=== PATIENT | female | born 1975 | race Caucasian/White ===

== ENCOUNTER 2016-08-08 08:58 | Emergency (ER) | payer SELFPAY ==
[~2016-08-08] VITALS: Wt 80.0 kg
[~2016-08-08 08:58] MED LIST: ACET1TAB40 PO; CEPH-443 PO; CYCL-319 PO; GUAI473L22 PO; HYDR-3498 PO; HYDR-902 PO; HYDR-906 PO; IBUP-1542 PO; IBUP-727 PO; IBUP400T22 PO; IBUP800T25 PO; MELO-109 PO; NAPR-260 PO; ORPH100T PO; ULT50 PO
[2016-08-08] MEDS ORDERED: IBUPROFEN 800 MG TAB PO ONE (10:00)
--- NOTE | 2016-08-08 10:34 | RADRPT ---
PROCEDURE: XR right shoulder. CLINICAL INDICATION: Pain TECHNIQUE: Axillary, Internal and external rotation views of the right shoulder were performed. COMPARISON: None. FINDINGS: There is normal osseous mineralization and alignment. No acute fracture or osseous lesion is identified. There are normal joints without evidence of arthritis or dislocation. The soft tissues are unremarkable. RPTAT: AA IMPRESSION: Unremarkable right shoulder. .Jorje Hernandez MD, MD Date Time Electronically viewed and signed by .Jorje Hernandez MD, on 08/08/2016 10:34 .S/
--- NOTE | 2016-08-08 10:34 | RADRPT ---
PROCEDURE: Right humerus x-ray CLINICAL INDICATION: pain TECHNIQUE: AP and lateral views of the humerus were obtained. COMPARISON: 09/20/2015 FINDINGS: There is normal mineralization. No acute fracture or dislocation is seen. There is no significant soft tissue swelling. RPTAT: AA IMPRESSION: Normal x-ray of the right humerus. .Jorje Hernandez MD, MD Date Time Electronically viewed and signed by .Jorje Hernandez MD, on 08/08/2016 10:34 .S/
[2016-08-08] MEDS ORDERED: ULT50 PO (10:39)
--- NOTE | 2016-08-08 10:41 | ERD ---
ER Documentation Chief Complaint Date/Time DATE: 08/08/16 TIME: 10:39 Chief Complaint RIGHT SHOULDER PAIN FROM A GROUND LEVEL FALL. NO OBVIOUS DEFORMITY HPI This a 41-year-old female who says that she slipped outside in the wet pavement this morning landing on her right shoulder. She is complaining of sharp pain to the midshaft of the right humerus and the lateral aspect of her right shoulder. She did not feel a snap or a pop. He says the pain is sharp and worse with movement better with rest. Did not hit her head or any loss of consciousness. She is denying headache neck pain chest pain back pain pelvic pain or other extremity pain. No abdominal pain. ROS All systems reviewed and are negative except as per history of present illness. Medications Home Meds Active Scripts Tramadol HCl (Tramadol HCl) 50 Mg Tablet, 50 MG PO Q6, #20 TAB Prov:BRITTANI THAYER DO 08/08/16 Guaifenesin-Codeine Phosphate* (Guaifenesin* AC Cough Syrup) 473 Ml Liquid, 5 ML PO Q4H Y for COUGH, #4 OZ Prov:EMMANUEL GRULLON PA-C 07/20/16 Hydrocodone/Acetaminophen ([place] 10-325 Tablet) 1 Each Tablet, 1 TAB PO Q6H Y for PAIN, #15 TAB Prov:EMMANUEL GRULLON PA-C 07/20/16 Naproxen* (Naprosyn*) 500 Mg Tablet, 500 MG PO BID Y for PAIN AND/OR INFLAMMATION, #30 TAB Prov:ALEX GONZALEZ PA-C 05/25/16 Ibuprofen* (Motrin*) 600 Mg Tab, 600 MG PO Q6, #30 TAB Prov:NANCI CAMACHO PA-C 05/12/16 Tramadol HCl (Tramadol HCl) 50 Mg Tablet, 50 MG PO Q4 Y for PAIN, #20 TAB Prov:GUILLERMINA BOONE PA-C 04/04/16 Naproxen* (Naprosyn*) 500 Mg Tablet, 500 MG PO BID Y for PAIN AND/OR INFLAMMATION, #30 TAB Prov:TYSON STERLING PA-C 04/01/16 Hydrocodone/Acetaminophen ([place] 5-325 Tablet) 1 Each Tablet, 1 TAB PO Q6H Y for PAIN, #14 TAB Prov:OTONIEL ASTUDILLO MD 03/29/16 Orphenadrine Citrate (Norflex) 100 Mg Tablet.sa, 100 MG PO BID for 7 Days, TAB.SA Prov:DEMETRIUSRADHA Gonzales 03/10/16 Hydrocodone Bit-Acetaminophen* ([place]*) 5-325 Mg Tab, 1 TAB PO Q6 Y for PAIN, # 10 TAB Prov:DEMETRIUSRADHA Gonzales 03/10/16 Hydrocodone Bit-Acetaminophen* ([place]*) 5-325 Mg Tab, 1 TAB PO Q6 Y for PAIN, # 20 TAB Prov:RADHA ROMO 02/24/16 Ibuprofen* (Motrin*) 600 Mg Tab, 600 MG PO Q6, #20 TAB Prov:ALEX GONZALEZ-C 02/04/16 Tramadol HCl (Tramadol HCl) 50 Mg Tablet, 50 MG PO Q6 Y for PAIN, #8 TAB Prov:ALEX GONZALEZ-C 02/04/16 Cyclobenzaprine Hcl* (Cyclobenzaprine Hcl*) 10 Mg Tablet, 10 MG PO BID, #10 TAB Prov:ALEX GONZALEZ-C 02/04/16 Tramadol HCl (Tramadol HCl) 50 Mg Tablet, 50 MG PO Q6 Y for PAIN, #10 TAB Prov:ALEX GONZALEZ-C 01/28/16 Cephalexin* (Keflex*) 500 Mg Capsule, 500 MG PO QID for 7 Days, CAP Prov:ALEX GONZALEZ-C 01/28/16 Tramadol HCl (Tramadol HCl) 50 Mg Tablet, 50 MG PO Q4 Y for PAIN, #12 TAB Prov:TYSON STERLINGC 12/31/15 Tramadol HCl (Tramadol HCl) 50 Mg Tablet, 50 MG PO Q4 Y for PAIN, #10 TAB Prov:ALEX GONZALEZ-C 12/03/15 Ibuprofen* (Motrin*) 800 Mg Tab, 800 MG PO Q6, #14 TAB Prov:ALEX GONZALEZ-C 12/03/15 Ibuprofen* (Motrin*) 400 Mg Tab, 400 MG PO Q6, #15 TAB Prov:NEY SLADE NP 10/29/15 Acetaminophen-Codeine* (Acetaminophen-Cod #3*) 300-30 Mg Tab, 1 TAB PO Q4H Y for PAIN, #10 TAB Prov:NEY SLADE NP 10/29/15 Tramadol HCl (Tramadol HCl) 50 Mg Tablet, 50 MG PO Q4 Y for PAIN, #20 TAB Prov:GUILLERMINA BOONE PA-C 10/26/15 Meloxicam* (Meloxicam*) 7.5 Mg Tablet, 7.5 MG PO DAILY for PAIN, #12 TAB Prov:TARSHA GARCIA MD 10/06/15 Hydrocodone Bit-Acetaminophen* ([place]*) 5-325 Mg Tab, 1 TAB PO Q6 Y for PAIN, # 10 TAB Prov:ROBIN WALLIS NP 09/20/15 Ibuprofen* (Motrin*) 600 Mg Tab, 600 MG PO Q6, #15 TAB Prov:ROBIN WALLIS NP 09/20/15 Hydrocodone Bit-Acetaminophen* ([place]*) 5-325 Mg Tab, 1 TAB PO Q6 Y for PAIN, # 15 TAB Prov:GUILLERMINA BOONE PA-C 05/27/15 Hydrocodone Bit-Acetaminophen* ([place]*) 5-325 Mg Tab, 1 TAB PO Q4H Y for PAIN, # 14 TAB Prov:TYSON STERLING PA-C 04/15/15 Reported Medications Ibuprofen (Motrin) 600 Mg Tablet, 600 MG PO PRN 03/24/13 Allergies Allergies: Coded Allergies: Penicillins (Verified Allergy, Unknown, 04/04/16) PMhx/Soc History of Surgery: Yes (CHIN surgery, tonsillectomy,appendectomy, cholecystectomy) Anesthesia Reaction: No Hx Neurological Disorder: No Hx Respiratory Disorders: No Hx Cardiac Disorders: No Hx Psychiatric Problems: No Hx Miscellaneous Medical Probl: Yes (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 No meningismus, no lymphadenopathy.] Resp: [Clear to auscultation bilaterally, no wheezing, rhonchi, rales] Cardio: [Regular rate and rhythm, no murmurs, S1 S2 present] Abd: [Soft, non tender x 4, non distended. Normal bowel sounds, no guarding or rebound, no pulsitile abdominal masses or bruits] Skin: [No petechiae or rashes, no ecchymosis , no maculopapular rash] Back: [No midline or flank tenderness] Ext: [No cyanosis, or edema, FROM x 3, tender to palpation at the lateral aspect of the right shoulder and midshaft humerus no deformity, normal inspection, neurovascularly intact x 4] Neur: [Awake and alert, STR 5/5 x 4, sensation intact x 4, no focal findings, cerebellum intact] Psych: [Normal Mood and Affect] Results 24 hrs Current Medications Medications (Trade) Dose Ordered Sig/Nia Route PRN Reason Start Time Stop Time Status Last Admin Dose Admin Ibuprofen (Motrin) 800 mg ONCE ONCE PO 08/08/16 10:00 08/08/16 10:01 DC 08/08/16 09:52 Procedures/MDM X-ray of the right shoulder is normal per radiology X-ray of right humerus is normal per radiology Patient has been seen here many times for multiple musculoskeletal complaints. Patient could be drug-seeking or malingering. We will not prescribe narcotic and will use Ultram Departure Diagnosis: Primary Impression: Contusion, upper arm Encounter type: initial encounter Laterality: right Qualified Code: S40.021A - Contusion of right upper arm, initial encounter Additional Impression: Shoulder pain Laterality: right Chronicity: acute Qualified Code: M25.511 - Acute pain of right shoulder Condition: Stable Patient Instructions: Contusion, Upper Extremity BRITTANI THAYER DO Aug 08, 2016 10:41
== END 2016-08-08 11:01 | disposition home or self-care (01) ==
LOC: FTE 08:58
DX: S40.021A Contusion of right upper arm, initial encounter (principal); W01.0XXA Fall on same level from slipping, tripping and stumbling without subsequent striking against object, initial encounter; Y92.9 Unspecified place or not applicable

== ENCOUNTER 2016-08-31 13:21 | Emergency (ER) | payer OTHER ==
[~2016-08-31] VITALS: Ht 162.6 cm; Wt 89.0 kg
[~2016-08-31 13:21] MED LIST changes: +TRAM50TA2 PO; -ULT50 PO
[2016-08-31 13:30] VITALS: Ht 162.6 cm; Wt 89.0 kg
[2016-08-31] MEDS ORDERED: ONDANSETRON (ODT) 4 MG TAB ODT STA (15:32)
[2016-08-31] MEDS ORDERED: NAPR-260 PO (15:34)
[2016-08-31] MEDS ORDERED: HYDR-906 PO (15:34)
[2016-08-31] MEDS ORDERED: HYDROCODONE/APAP (5/325) TAB PO ONE (16:00)
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
== END 2016-08-31 17:00 | disposition home or self-care (01) ==
LOC: FTE 13:21
DX: M54.5 Low back pain (principal)
CPT/HCPCS: 99283

== ENCOUNTER 2016-09-02 23:00 | Emergency (ER) | payer OTHER ==
[~2016-09-02] VITALS: Ht 157.5 cm; Wt 83.5 kg
[2016-09-02 23:06] VITALS: Ht 157.5 cm; Wt 83.5 kg
[2016-09-03] MEDS ORDERED: ONDA8TAB14 PO (01:30)
[2016-09-03] MEDS ORDERED: TRAM50TA2 PO (01:30)
--- NOTE | 2016-09-03 01:36 | ERD ---
ER Documentation Chief Complaint Date/Time DATE: 09/03/16 TIME: 01:31 Chief Complaint back pain hx- disc problem HPI Patient is a 41-year-old female with past medical history of seizures and chronic back pain secondary to bulging disc who presents to the emergency department with acute exacerbation of lower back pain. Patient states that she had to sleep on the recliner a few days ago while her daughter was undergoing a sleep study at [facility]. Since that time her back pain has been persistent. Patient was seen here on 08/31/16, and given a prescription for Orefield and naproxen. Patient states that the medication does help, however it makes her feel nauseous. Patient states that her current pain level is 6 out of 10. She denies any fever, chills, shortness breath, chest pain, urinary incontinence , stool incontinence, saddle anesthesia. Patient denies any recent falls or trauma. She requesting prescription for tramadol given that this medication "works for me." She denies any nausea while taking tramadol. ROS All systems reviewed and are negative except as per history of present illness. Medications Home Meds Active Scripts Ondansetron (Ondansetron Odt) 8 Mg Tab.rapdis, 8 MG PO Q6H Y for NAUSEA AND/OR VOMITING, #20 TAB Prov:ANGIE MORALEZ PA-C 09/03/16 Tramadol HCl (Tramadol HCl) 50 Mg Tablet, 50 MG PO Q6, #10 TAB Prov:ANGIE MORALEZ PA-C 09/03/16 Naproxen* (Naprosyn*) 500 Mg Tablet, 500 MG PO BID Y for PAIN AND/OR INFLAMMATION, #30 TAB Prov:GUILLERMINA BOONE PA-C 08/31/16 Hydrocodone/Acetaminophen (O[place] 5-325 Tablet) 1 Each Tablet, 1 TAB PO Q6H Y for PAIN, #12 TAB Prov:GUILLERMINA BOONE PA-C 08/31/16 Tramadol HCl (Tramadol HCl) 50 Mg Tablet, 50 MG PO Q6, #20 TAB Prov:BRITTANI THAYER DO 08/08/16 Guaifenesin-Codeine Phosphate* (Guaifenesin* AC Cough Syrup) 473 Ml Liquid, 5 ML PO Q4H Y for COUGH, #4 OZ Prov:EMMANUEL GRULLON PA-C 07/20/16 Hydrocodone/Acetaminophen (O[place] 10-325 Tablet) 1 Each Tablet, 1 TAB PO Q6H Y for PAIN, #15 TAB Prov:EMMANUEL GRULLON PA-C 07/20/16 Naproxen* (Naprosyn*) 500 Mg Tablet, 500 MG PO BID Y for PAIN AND/OR INFLAMMATION, #30 TAB Prov:ALEX GONZALEZ PA-C 05/25/16 Ibuprofen* (Motrin*) 600 Mg Tab, 600 MG PO Q6, #30 TAB Prov:NANCI CAMACHO PA-C 05/12/16 Tramadol HCl (Tramadol HCl) 50 Mg Tablet, 50 MG PO Q4 Y for PAIN, #20 TAB Prov:GUILLERMINA BOONE PA-C 04/04/16 Naproxen* (Naprosyn*) 500 Mg Tablet, 500 MG PO BID Y for PAIN AND/OR INFLAMMATION, #30 TAB Prov:TYSON STERLING PA-C 04/01/16 Hydrocodone/Acetaminophen (Orefield 5-325 Tablet) 1 Each Tablet, 1 TAB PO Q6H Y for PAIN, #14 TAB Prov:OTONIEL ASTUDILLO MD 03/29/16 Orphenadrine Citrate (Norflex) 100 Mg Tablet.sa, 100 MG PO BID for 7 Days, TAB.SA Prov:RADHA ROMO 03/10/16 Hydrocodone Bit-Acetaminophen* (Orefield*) 5-325 Mg Tab, 1 TAB PO Q6 Y for PAIN, # 10 TAB Prov:RADHA ROMO 03/10/16 Hydrocodone Bit-Acetaminophen* (Orefield*) 5-325 Mg Tab, 1 TAB PO Q6 Y for PAIN, # 20 TAB Prov:RADHA ROMO 02/24/16 Ibuprofen* (Motrin*) 600 Mg Tab, 600 MG PO Q6, #20 TAB Prov:ALEX GONZALEZ PA-C 02/04/16 Tramadol HCl (Tramadol HCl) 50 Mg Tablet, 50 MG PO Q6 Y for PAIN, #8 TAB Prov:ALEX GONZALEZ PA-C 02/04/16 Cyclobenzaprine Hcl* (Cyclobenzaprine Hcl*) 10 Mg Tablet, 10 MG PO BID, #10 TAB Prov:ALEX GONZALEZ-C 02/04/16 Tramadol HCl (Tramadol HCl) 50 Mg Tablet, 50 MG PO Q6 Y for PAIN, #10 TAB Prov:ALEX GONZALEZ-C 01/28/16 Cephalexin* (Keflex*) 500 Mg Capsule, 500 MG PO QID for 7 Days, CAP Prov:ALEX GONZALEZ-C 01/28/16 Tramadol HCl (Tramadol HCl) 50 Mg Tablet, 50 MG PO Q4 Y for PAIN, #12 TAB Prov:TYSON STERLINGC 12/31/15 Tramadol HCl (Tramadol HCl) 50 Mg Tablet, 50 MG PO Q4 Y for PAIN, #10 TAB Prov:ALEX GONZALEZC 12/03/15 Ibuprofen* (Motrin*) 800 Mg Tab, 800 MG PO Q6, #14 TAB Prov:ALEX GONZALEZ-C 12/03/15 Ibuprofen* (Motrin*) 400 Mg Tab, 400 MG PO Q6, #15 TAB Prov:NEY SLADE NP 10/29/15 Acetaminophen-Codeine* (Acetaminophen-Cod #3*) 300-30 Mg Tab, 1 TAB PO Q4H Y for PAIN, #10 TAB Prov:NEY SLADE NP 10/29/15 Tramadol HCl (Tramadol HCl) 50 Mg Tablet, 50 MG PO Q4 Y for PAIN, #20 TAB Prov:GUILLERMINA BOONE PA-C 10/26/15 Meloxicam* (Meloxicam*) 7.5 Mg Tablet, 7.5 MG PO DAILY for PAIN, #12 TAB Prov:TARSHA GARCIA MD 10/06/15 Hydrocodone Bit-Acetaminophen* (Orefield*) 5-325 Mg Tab, 1 TAB PO Q6 Y for PAIN, # 10 TAB Prov:ROBIN WALLIS NP 09/20/15 Ibuprofen* (Motrin*) 600 Mg Tab, 600 MG PO Q6, #15 TAB Prov:ROBIN WALLIS NP 09/20/15 Hydrocodone Bit-Acetaminophen* (Orefield*) 5-325 Mg Tab, 1 TAB PO Q6 Y for PAIN, # 15 TAB Prov:GUILLERMINA BOONE PA-C 05/27/15 Hydrocodone Bit-Acetaminophen* (Orefield*) 5-325 Mg Tab, 1 TAB PO Q4H Y for PAIN, # 14 TAB Prov:TYSON STERLING BARB 04/15/15 Reported Medications Ibuprofen (Motrin) 600 Mg Tablet, 600 MG PO PRN 03/24/13 Allergies Allergies: Coded Allergies: Penicillins (Verified Allergy, Unknown, 08/31/16) PMhx/Soc History of Surgery: Yes (CHIN surgery, tonsillectomy,appendectomy, cholecystectomy) Anesthesia Reaction: No Hx Neurological Disorder: No Hx Respiratory Disorders: No Hx Cardiac Disorders: No Hx Psychiatric Problems: No Hx Miscellaneous Medical Probl: Yes (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 Appears in no acute distress. HEAD: Normocephalic, atraumatic. EYES: Pupils are equally reactive bilaterally. EOMs grossly intact. No conjunctival erythema. ENT: Moist mucous membranes. No uvula deviation. No kissing tonsils. NECK: Supple. No lymphadenopathy or thyromegaly. No meningismus. LUNG: Clear to auscultation bilaterally. No rhonchi, wheezing, rales or coarse breath sounds. HEART: Regular rate and rhythm. No murmurs, rubs or gallops. ABDOMEN: No scars, ecchymosis or rashes noted. Soft, nontender, and nondistended. Positive bowel sounds in all four quadrants. No rebound tenderness , no guarding. No CVA tenderness. BACK: Tender to palpation of lumbar spine. No paraspinal muscle tenderness bilaterally. EXTREMITIES: Equal pulses bilaterally. No peripheral clubbing, cyanosis or edema. No unilateral leg swelling. NEUROLOGIC: Alert and oriented. Moving all four extremities without any difficulty. Normal speech. Steady gait. SKIN: Normal color. Warm and dry. No rashes or lesions. Procedures/MDM MEDICAL DECISION MAKING: This is a 41-year-old female who presents with back pain. Patient denies any fever, chills, trauma, falls, saddle anesthesia, bladder incontinence or bowel incontinence. Vital signs were reviewed. Patient was afebrile. Given these findings, the patients presentation is most consistent with acute exacerbation of chronic lower back pain. I have a much lower clinical concern for cauda equine syndrome, spinal fractures, epidural abscess, spinal metastases, osteomyelitis, aortic dissection, ruptured or leaking AA, DJD, sciatica, muscle spasm, pyelonephritis or nephrolithiasis. PRESCRIPTIONS: Tramadol, Zofran DISCHARGE: At this time, patient is stable for discharge and outpatient management. RICE therapy and ROM exercises were advised to avoid stiffness. I have instructed the patient to follow-up with his/her primary care physician in 1-2 days. I have discussed with the patient the possibility of needing to see an credit administration specialist for further workup and imaging if the pain persists. I have instructed the patient to promptly return to the ER for any new or worsening symptoms including increased pain, swelling, warmth, urinary incontinence, stool incontinence, weakness or numbness. The patient and/or family expressed understanding of and agreement with this plan. All questions were answered. Home care instructions were provided. Departure Diagnosis: Primary Impression: Back pain Back pain location: low back pain Chronicity: chronic Back pain laterality : midline Sciatica presence: unspecified whether sciatica present Qualified Code: M54.5 - Chronic midline low back pain, with sciatica presence unspecified Condition: Stable Patient Instructions: Back Pain (Acute Or Chronic) Referrals: COMMUNITY CLINICS YOU HAVE RECEIVED A MEDICAL SCREENING EXAM AND THE RESULTS INDICATE THAT YOU DO NOT HAVE A CONDITION THAT REQUIRES URGENT TREATMENT IN THE EMERGENCY DEPARTMENT. FURTHER EVALUATION AND TREATMENT OF YOUR CONDITION CAN WAIT UNTIL YOU ARE SEEN IN YOUR DOCTORS OFFICE WITHIN THE NEXT 1-2 DAYS. IT IS YOUR RESPONSIBILITY TO MAKE AN APPOINTMENT FOR FOLOW-UP CARE. IF YOU HAVE A PRIMARY DOCTOR --you should call your primary doctor and schedule an appointment IF YOU DO NOT HAVE A PRIMARY DOCTOR YOU CAN CALL OUR PHYSICIAN REFERRAL HOTLINE AT IF YOU CAN NOT AFFORD TO SEE A PHYSICIAN YOU CAN CHOSE FROM THE FOLLOWING [facility] [address] [facility] [address] [facility]. [facility] [address] [facility] [address] [facility]. [facility] [address] [facility] [facility]. [address] [facility]. [facility] YOU HAVE RECEIVED A MEDICAL SCREENING EXAM AND THE RESULTS INDICATE THAT YOU DO NOT HAVE A CONDITION THAT REQUIRES URGENT TREATMENT IN THE EMERGENCY DEPARTMENT. FURTHER EVALUATION AND TREATMENT OF YOUR CONDITION CAN WAIT UNTIL YOU ARE SEEN IN YOUR DOCTORS OFFICE WITHIN THE NEXT 1-2 DAYS. IT IS YOUR RESPONSIBILITY TO MAKE AN APPOINTMENT FOR FOLOW-UP CARE. IF YOU HAVE A PRIMARY DOCTOR --you should call your primary doctor and schedule and appointment IF YOU DO NOT HAVE A PRIMARY DOCTOR YOU CAN CALL OUR PHYSICIAN REFERRAL HOTLINE AT . IF YOU CAN NOT AFFORD TO SEE A PHYSICIAN YOU CAN CHOSE FROM THE FOLLOWING [facility] INSTITUTIONS: [facility] [address] [place] [address] [facility] [address] [place] [address] [facility] [address] [place] [address] Additional Instructions: Call your primary care doctor TOMORROW for an appointment during the next 1-2 days.See the doctor sooner or return here if your condition worsens before your appointment time. ANGIE MORALEZ PA-C Sep 03, 2016 01:36
== END 2016-09-03 01:51 | disposition home or self-care (01) ==
LOC: FTE 23:00
DX: M54.5 Low back pain (principal)
CPT/HCPCS: 99284

== ENCOUNTER 2016-10-01 08:38 | Emergency (ER) | payer OTHER ==
[~2016-10-01] VITALS: Ht 154.9 cm; Wt 84.0 kg
[~2016-10-01 08:38] MED LIST changes: +ONDA8TAB14 PO
[2016-10-01 09:01] VITALS: Ht 154.9 cm; Wt 84.0 kg
--- NOTE | 2016-10-01 11:05 | RADRPT ---
PROCEDURE: Pelvic ultrasound. CLINICAL INDICATION: Pelvic pain TECHNIQUE: Gay scale, color doppler, spectral doppler ultrasound of the pelvis was performed with transabdominal and transvaginal transducers. COMPARISON: Pelvic ultrasound 10/29/2015 FINDINGS: Uterus: Position: Anteverted. Diffuse myometrial heterogeneity is again observed with multiple intramural appearing fibroids measu ring up to 2.8 cm. Small submucosal fibroids cannot be completely excluded. Normal appearance of the endometrium. A small Nabothian cyst is present. Ovaries: Normal sized ovaries with preserved blood flow. No adnexal masses. A few sub centimeter follicles noted within the left ovary. Free fluid: None. Measurements: Endometrium: 0.38 cm Uterus: 7.9 x 4.8 x 5.8 cm Right ovary: 2.0 x 1.2 x 1.6 cm Left ovary: 2.4 x 1.5 x 1.7 cm IMPRESSION: Uterine heterogeneity suggestive of multiple small predominantly intramural fibroids with small subm ucosal fibroids not being completely excluded. Otherwise normal appearance the endometrium and both ovaries. RPTAT: AADD .David Hannon MD, MD Date Time Electronically viewed and signed by .David Hannon MD, on 10/01/2016 11:05 .B/
[2016-10-01 11:08] LABS: URINE BLOOD (Dip) POC Negative (NEGATIVE)
[2016-10-01] MEDS ORDERED: IBUPROFEN 200 MG TAB PO ONE (11:30)
[2016-10-01] MEDS ORDERED: IBUP400T22 PO (12:00)
[2016-10-01] MEDS ORDERED: TRAM50TA2 PO (12:20)
[2016-10-01] MEDS ORDERED: ONDA4TAB8 PO (12:20)
[2016-10-01 12:26] VITALS: BP 118/67; PULSE 77; RESP 18
--- NOTE | 2016-10-01 16:43 | ERD ---
ER Documentation Chief Complaint Date/Time DATE: 10/01/16 TIME: 16:38 Chief Complaint right side pelvic pain x3 days, hx;cyst and fibroids lmp 09/28/16 HPI Patient is a 41-year-old female who presents to the ED with right-sided pelvic pain for 3 days. She states that she has a history of ovarian cysts and fibroids. She states that she is currently not bleeding. She denies abnormal vaginal discharge. She states that her last normal menstrual period was . She denies fever or chills. She denies nausea, vomiting, diarrhea, abdominal pain, constipation. Last bowel movement was yesterday. Patient states that she has a commercial underwriter that she follows but however she changed her health insurance and she has not been able to see her commercial underwriter in the last month but she does have an appointment on 10/05/16. She states that she is planning on getting hysterectomy once her insurance is finalized. Denies history of STDs. States that she is currently sexually active with one partner. Denies dysuria, urgency, frequency or back pain. This patient has had multiple visits here at [facility] for multiple complaints and has received pain medication. ROS All systems reviewed and are negative except as per history of present illness. Medications Home Meds Active Scripts Ondansetron Hcl* (Zofran*) 4 Mg Tablet, 4 MG PO Q6H for NAUSEA AND/OR VOMITING, #30 TAB Prov:GLADIS KAT PA-C 10/01/16 Tramadol HCl (Tramadol HCl) 50 Mg Tablet, 50 MG PO Q4 Y for PAIN, #7 TAB Prov:GLADIS KAT PA-C 10/01/16 Ibuprofen* (Motrin*) 400 Mg Tab, 400 MG PO Q6, #30 TAB Prov:GLADIS KAT PA-C 10/01/16 Ondansetron (Ondansetron Odt) 8 Mg Tab.rapdis, 8 MG PO Q6H Y for NAUSEA AND/OR VOMITING, #20 TAB Prov:ANGIE MORALEZ PA-C 09/03/16 Tramadol HCl (Tramadol HCl) 50 Mg Tablet, 50 MG PO Q6, #10 TAB Prov:ANGIE MORALEZ PA-C 09/03/16 Naproxen* (Naprosyn*) 500 Mg Tablet, 500 MG PO BID Y for PAIN AND/OR INFLAMMATION, #30 TAB Prov:GUILLERMINA BOONE PA-C 08/31/16 Hydrocodone/Acetaminophen ([place] 5-325 Tablet) 1 Each Tablet, 1 TAB PO Q6H Y for PAIN, #12 TAB Prov:GUILLERMINA BOONE PA-C 08/31/16 Tramadol HCl (Tramadol HCl) 50 Mg Tablet, 50 MG PO Q6, #20 TAB Prov:BRITTANI THAYER DO 08/08/16 Guaifenesin-Codeine Phosphate* (Guaifenesin* AC Cough Syrup) 473 Ml Liquid, 5 ML PO Q4H Y for COUGH, #4 OZ Prov:EMMANUEL GRULLON PA-C 07/20/16 Hydrocodone/Acetaminophen ([place] 10-325 Tablet) 1 Each Tablet, 1 TAB PO Q6H Y for PAIN, #15 TAB Prov:EMMANUEL GRULLON PA-C 07/20/16 Naproxen* (Naprosyn*) 500 Mg Tablet, 500 MG PO BID Y for PAIN AND/OR INFLAMMATION, #30 TAB Prov:ALEX GONZALEZ PA-C 05/25/16 Ibuprofen* (Motrin*) 600 Mg Tab, 600 MG PO Q6, #30 TAB Prov:NANCI CAMACHO PA-C 05/12/16 Tramadol HCl (Tramadol HCl) 50 Mg Tablet, 50 MG PO Q4 Y for PAIN, #20 TAB Prov:GUILLERMINA BOONE PA-C 04/04/16 Naproxen* (Naprosyn*) 500 Mg Tablet, 500 MG PO BID Y for PAIN AND/OR INFLAMMATION, #30 TAB Prov:TYSON STERLING PA-C 04/01/16 Hydrocodone/Acetaminophen ([place] 5-325 Tablet) 1 Each Tablet, 1 TAB PO Q6H Y for PAIN, #14 TAB Prov:OTONIEL ASTUDILLO MD 03/29/16 Orphenadrine Citrate (Norflex) 100 Mg Tablet.sa, 100 MG PO BID for 7 Days, TAB.SA Prov:RADHA ROMO 03/10/16 Hydrocodone Bit-Acetaminophen* ([place]*) 5-325 Mg Tab, 1 TAB PO Q6 Y for PAIN, # 10 TAB Prov:RADHA ROMO 03/10/16 Hydrocodone Bit-Acetaminophen* ([place]*) 5-325 Mg Tab, 1 TAB PO Q6 Y for PAIN, # 20 TAB Prov:RADHA ROMO 02/24/16 Ibuprofen* (Motrin*) 600 Mg Tab, 600 MG PO Q6, #20 TAB Prov:ALEX GONZALEZ-C 02/04/16 Tramadol HCl (Tramadol HCl) 50 Mg Tablet, 50 MG PO Q6 Y for PAIN, #8 TAB Prov:ALEX GONZALEZ-C 02/04/16 Cyclobenzaprine Hcl* (Cyclobenzaprine Hcl*) 10 Mg Tablet, 10 MG PO BID, #10 TAB Prov:ALEX GONZALEZ-C 02/04/16 Tramadol HCl (Tramadol HCl) 50 Mg Tablet, 50 MG PO Q6 Y for PAIN, #10 TAB Prov:ALEX GONZALEZ-C 01/28/16 Cephalexin* (Keflex*) 500 Mg Capsule, 500 MG PO QID for 7 Days, CAP Prov:ALEX GONZALEZ-C 01/28/16 Tramadol HCl (Tramadol HCl) 50 Mg Tablet, 50 MG PO Q4 Y for PAIN, #12 TAB Prov:TYSON STERLING-C 12/31/15 Tramadol HCl (Tramadol HCl) 50 Mg Tablet, 50 MG PO Q4 Y for PAIN, #10 TAB Prov:ALEX GONZALEZ-C 12/03/15 Ibuprofen* (Motrin*) 800 Mg Tab, 800 MG PO Q6, #14 TAB Prov:ALEX GONZALEZ-C 12/03/15 Ibuprofen* (Motrin*) 400 Mg Tab, 400 MG PO Q6, #15 TAB Prov:NEY SLADE NP 10/29/15 Acetaminophen-Codeine* (Acetaminophen-Cod #3*) 300-30 Mg Tab, 1 TAB PO Q4H Y for PAIN, #10 TAB Prov:NEY SLADE NP 10/29/15 Tramadol HCl (Tramadol HCl) 50 Mg Tablet, 50 MG PO Q4 Y for PAIN, #20 TAB Prov:GUILLERMINA BOONE-C 10/26/15 Meloxicam* (Meloxicam*) 7.5 Mg Tablet, 7.5 MG PO DAILY for PAIN, #12 TAB Prov:TARSHA GARCIA MD 10/06/15 Hydrocodone Bit-Acetaminophen* ([place]*) 5-325 Mg Tab, 1 TAB PO Q6 Y for PAIN, # 10 TAB Prov:ROBIN WALLIS [employer]EDER [employer] SERVICE TECHNICIAN 09/20/15 Ibuprofen* (Motrin*) 600 Mg Tab, 600 MG PO Q6, #15 TAB Prov:ROBIN WALLIS BREEDER HEN SERVICE TECHNICIAN 09/20/15 Hydrocodone Bit-Acetaminophen* ([place]*) 5-325 Mg Tab, 1 TAB PO Q6 Y for PAIN, # 15 TAB Prov:GUILLERMINA BOONE PA-C 05/27/15 Hydrocodone Bit-Acetaminophen* ([place]*) 5-325 Mg Tab, 1 TAB PO Q4H Y for PAIN, # 14 TAB Prov:TYSON STERLINGC 04/15/15 Reported Medications Ibuprofen (Motrin) 600 Mg Tablet, 600 MG PO PRN 03/24/13 Allergies Allergies: Coded Allergies: Penicillins (Verified Allergy, Unknown, 08/31/16) PMhx/Soc History of Surgery: Yes (tonsil, appy, gallbladder) Anesthesia Reaction: Yes (nausea) Hx Neurological Disorder: No Hx Respiratory Disorders: No Hx Cardiac Disorders: No Hx Psychiatric Problems: No Hx Miscellaneous Medical Probl: No Hx Alcohol Use: No Hx Substance Use: No Hx Tobacco Use: No Smoking Status: Never smoker FmHx Family History: No coronary disease, No diabetes, No other Physical Exam Vitals Vital Signs Date Time Temp Pulse Resp B/P Pulse Ox O2 Delivery O2 Flow Rate FiO2 10/01/16 12:26 77 18 118/67 99 Room Air 10/01/16 09:01 98.3 86 18 143/93 100 Physical Exam GENERAL: Well-developed, well-nourished female. Appears in no acute distress. LUNG: Clear to auscultation bilaterally. No rhonchi, wheezing, rales or coarse breath sounds. HEART: Regular rate and rhythm. No murmurs, rubs or gallops. ABDOMEN: No scars, ecchymosis or rashes noted. Soft, nontender, and nondistended. Positive bowel sounds in all four quadrants. No rebound tenderness , no guarding. (-) McBurneys point tenderness. No CVA tenderness. Slight tenderness to right pelvic area. BACK: No midline tenderness. Extremities: Equal pulses bilaterally. No peripheral clubbing, cyanosis or edema. No unilateral leg swelling. NEUROLOGIC: Alert and oriented. Moving all four extremities. 5/5 strength in all extremities. Normal speech. Steady gait. SKIN: Normal color. Warm and dry. No rashes or lesions. Capillary refill < 2 seconds Results 24 hrs Laboratory Tests Test 10/01/16 11:11 Bedside Urine Blood Negative Bedside Urine Glucose (UA) Negative Bedside Urine Ketones (LAB) Negative Bedside Urine Leukocyte Esterase (L Negative Bedside Urine Nitrite (LAB) Negative Bedside Urine Protein (LAB) Negative Bedside Urine pH (LAB) 7.5 Current Medications Medications (Trade) Dose Ordered Sig/Nia Route PRN Reason Start Time Stop Time Status Last Admin Dose Admin Ibuprofen (Motrin) 400 mg ONCE ONCE PO 10/01/16 11:30 10/01/16 11:31 DC 10/01/16 12:07 Procedures/MDM ER COURSE: I kept the patient and/or family informed of laboratory and diagnostic imaging results throughout the emergency room course. IMAGING STUDIES: [place] [id number] Radiology Main Line: [phone] DIAGNOSTIC IMAGING REPORT Patient: ANYA JIANG : 1975 Age: 41 Sex: F MR #: [id number] DOS: 10/01/16 0000 Ordering MD: GLADIS KAT PA-C Location: [facility] Room/Bed: PROCEDURE: Pelvic ultrasound. CLINICAL INDICATION: Pelvic pain TECHNIQUE: Gay scale, color doppler, spectral doppler ultrasound of the pelvis was performed with transabdominal and transvaginal transducers. COMPARISON: Pelvic ultrasound 10/29/2015 FINDINGS: Uterus: Position: Anteverted. Diffuse myometrial heterogeneity is again observed with multiple intramural appearing fibroids measuring up to 2.8 cm. Small submucosal fibroids cannot be completely excluded. Normal appearance of the endometrium. A small Nabothian cyst is present. Ovaries: Normal sized ovaries with preserved blood flow. No adnexal masses. A few sub centimeter follicles noted within the left ovary. Free fluid: None. Measurements: Endometrium: 0.38 cm Uterus: 7.9 x 4.8 x 5.8 cm Right ovary: 2.0 x 1.2 x 1.6 cm Left ovary: 2.4 x 1.5 x 1.7 cm IMPRESSION: Uterine heterogeneity suggestive of multiple small predominantly intramural fibroids with small submucosal fibroids not being completely excluded. Otherwise normal appearance the endometrium and both ovaries. RPTAT: AADD .David Hannon MD, MD Date Time Electronically viewed and signed by .David Hannon MD, on 10/01/2016 11:05 .B/ CC: GLADIS KAT PA-C MEDICAL DECISION MAKING: This is a 41-year-old female who presents with right-sided pelvic pain 3 days. Vital signs were reviewed. Patient is afebrile. Patient is not hypoxic. Patient is not toxic or ill-appearing. Ultrasound is read by radiologist shows Uterine heterogeneity suggestive of multiple small predominantly intramural fibroids with small submucosal fibroids not being completely excluded. Otherwise normal appearance the endometrium and both ovaries. Low suspicion for ovarian torsion, PID, tuboovarian abscess, ectopic , bowel obstruction, pyelonephritis, UTI, appendicitis, cervicitis, septic , molar , HELLP syndrome, preeclampsia, eclampsia, placenta previa, placenta abruptia. Patient does not have signs of UTI, no nitrites, leukocyte esterase or hematuria. is negative. I do think that patient has slight drug-seeking behavior. DISCHARGE: At this time, patient is stable for discharge and outpatient management with no new complaints during the ER course. Patient was sent home with prescription for tramadol for only 7 tablets and zofran for nausea. I have given him a copy of her ultrasound reports and review the results with the patient. Patient will be taking her ultrasound results with her commercial underwriter at her appointment next week. Patient will be discharged home with instructions to recheck for new or worsening symptoms such as fever, nausea, weakness, LOC and to follow up with primary care in the next 1-2 days. Patient was advised to return to the ER for any new or worsening symptoms. Plan was discussed and patient and/or family understands and agrees. Home instructions were given. Departure Diagnosis: Primary Impression: Fibroids Uterine leiomyoma location: unspecified location Qualified Code: D25.9 - Uterine leiomyoma, unspecified location Condition: Stable Patient Instructions: What Are Fibroids? Additional Instructions: Call your primary care doctor TOMORROW for an appointment during the next 1-2 days.See the doctor sooner or return here if your condition worsens before your appointment time. GLADIS KAT PA-C Oct 01, 2016 16:43
== END 2016-10-01 12:27 | disposition home or self-care (01) ==
LOC: FTE 08:38
DX: D25.9 Leiomyoma of uterus, unspecified (principal)
CPT/HCPCS: 76830; 76856; 81003

== ENCOUNTER 2016-11-04 08:45 | Emergency (ER) | payer SELFPAY ==
[~2016-11-04] VITALS: Ht 154.9 cm; Wt 80.0 kg
[~2016-11-04 08:45] MED LIST changes: +ONDA4TAB8 PO
[2016-11-04 08:46] VITALS: Ht 154.9 cm; Wt 80.0 kg
[2016-11-04] MEDS ORDERED: FLUT9.9S NASAL (09:33)
[2016-11-04] MEDS ORDERED: CETI10CA PO (09:34)
[2016-11-04] MEDS ORDERED: D-ME473S18 PO (09:34)
[2016-11-04] MEDS ORDERED: AZIT250T94 PO (09:34)
[2016-11-04] MEDS ORDERED: NAPR-260 PO (09:35)
--- NOTE | 2016-11-04 09:42 | ERD ---
ER Documentation Chief Complaint Date/Time DATE: 11/04/16 TIME: 09:39 Chief Complaint pt bib self with c/o cough x 5 days HPI This a 41-year-old female who presents to the emergency department today complaining of cough for the past 5 days. States cough is worse at night. States she has tried Robitussin [id number]. States she also has a headache. Denies any fevers or chills. Denies any sore throat. ROS All systems reviewed and are negative except as per history of present illness. Medications Home Meds Active Scripts Naproxen* (Naprosyn*) 500 Mg Tablet, 500 MG PO BID Y for PAIN AND/OR INFLAMMATION, #30 TAB Prov:ALEX GONZALEZ PA-C 11/04/16 Azithromycin* (Zithromax*) 250 Mg Tablet, 250 MG PO .ZPACK DIRECTED, #6 TAB TAKE 500 MG (2 TABS) THE FIRST DAY THEN 250 MG (1 TAB) DAYS 2-5 Prov:ALEX GONZALEZ PA-C 11/04/16 Dextromethorphan Hb-Promethazine Hcl (Promethazine DM Syrup) 473 Ml Syrup, 5 ML PO Q6H Y for COUGH, #4 OZ Prov:ALEX GONZALEZ PA-C 11/04/16 Cetirizine Hcl* (Zyrtec*) 10 Mg Capsule, 10 MG PO DAILY, #14 TAB.CHEW Prov:ALEX GONZALEZ PA-C 11/04/16 Fluticasone Propionate (Flonase Allergy Relief) 9.9 Ml [place].susp, 2 SPRAY NASAL DAILY, #1 BOTTLE TO EACH NOSTRIL Prov:ALEX GONZALEZ PA-C 11/04/16 Ondansetron Hcl* (Zofran*) 4 Mg Tablet, 4 MG PO Q6H for NAUSEA AND/OR VOMITING, #30 TAB Prov:GLADIS KAT PA-C 10/01/16 Tramadol HCl (Tramadol HCl) 50 Mg Tablet, 50 MG PO Q4 Y for PAIN, #7 TAB Prov:GLADIS KAT PA-C 10/01/16 Ibuprofen* (Motrin*) 400 Mg Tab, 400 MG PO Q6, #30 TAB Prov:GLADIS KAT PA-C 10/01/16 Ondansetron (Ondansetron Odt) 8 Mg Tab.rapdis, 8 MG PO Q6H Y for NAUSEA AND/OR VOMITING, #20 TAB Prov:ANGIE MORALEZ PA-C 09/03/16 Tramadol HCl (Tramadol HCl) 50 Mg Tablet, 50 MG PO Q6, #10 TAB Prov:ANGIE MORALEZ PA-C 09/03/16 Naproxen* (Naprosyn*) 500 Mg Tablet, 500 MG PO BID Y for PAIN AND/OR INFLAMMATION, #30 TAB Prov:GUILLERMINA BOONE PA-C 08/31/16 Hydrocodone/Acetaminophen ([place] 5-325 Tablet) 1 Each Tablet, 1 TAB PO Q6H Y for PAIN, #12 TAB Prov:GUILLERMINA BOONE PA-C 08/31/16 Tramadol HCl (Tramadol HCl) 50 Mg Tablet, 50 MG PO Q6, #20 TAB Prov:BRITTANI THAYER DO 08/08/16 Guaifenesin-Codeine Phosphate* (Guaifenesin* AC Cough Syrup) 473 Ml Liquid, 5 ML PO Q4H Y for COUGH, #4 OZ Prov:EMMANUEL GRULLON PA-C 07/20/16 Hydrocodone/Acetaminophen ([place] 10-325 Tablet) 1 Each Tablet, 1 TAB PO Q6H Y for PAIN, #15 TAB Prov:EMMANUEL GRULLON PA-C 07/20/16 Naproxen* (Naprosyn*) 500 Mg Tablet, 500 MG PO BID Y for PAIN AND/OR INFLAMMATION, #30 TAB Prov:ALEX GONZALEZ PA-C 05/25/16 Ibuprofen* (Motrin*) 600 Mg Tab, 600 MG PO Q6, #30 TAB Prov:NANCI CAMACHO PA-C 05/12/16 Tramadol HCl (Tramadol HCl) 50 Mg Tablet, 50 MG PO Q4 Y for PAIN, #20 TAB Prov:GUILLERMINA BOONE PA-C 04/04/16 Naproxen* (Naprosyn*) 500 Mg Tablet, 500 MG PO BID Y for PAIN AND/OR INFLAMMATION, #30 TAB Prov:TYSON STERLING PA-C 04/01/16 Hydrocodone/Acetaminophen ([place] 5-325 Tablet) 1 Each Tablet, 1 TAB PO Q6H Y for PAIN, #14 TAB Prov:OTONIEL ASTUDILLO MD 03/29/16 Orphenadrine Citrate (Norflex) 100 Mg Tablet.sa, 100 MG PO BID for 7 Days, TAB.SA Prov:RADHA ROMO 03/10/16 Hydrocodone Bit-Acetaminophen* ([place]*) 5-325 Mg Tab, 1 TAB PO Q6 Y for PAIN, # 10 TAB Prov:RADHA ROMO 03/10/16 Hydrocodone Bit-Acetaminophen* ([place]*) 5-325 Mg Tab, 1 TAB PO Q6 Y for PAIN, # 20 TAB Prov:RADHA ROMO 02/24/16 Ibuprofen* (Motrin*) 600 Mg Tab, 600 MG PO Q6, #20 TAB Prov:ALEX GONZALEZ-C 02/04/16 Tramadol HCl (Tramadol HCl) 50 Mg Tablet, 50 MG PO Q6 Y for PAIN, #8 TAB Prov:ALEX GONZALEZ-C 02/04/16 Cyclobenzaprine Hcl* (Cyclobenzaprine Hcl*) 10 Mg Tablet, 10 MG PO BID, #10 TAB Prov:ALEX GONZALEZ-C 02/04/16 Tramadol HCl (Tramadol HCl) 50 Mg Tablet, 50 MG PO Q6 Y for PAIN, #10 TAB Prov:ALEX GONZALEZ-C 01/28/16 Cephalexin* (Keflex*) 500 Mg Capsule, 500 MG PO QID for 7 Days, CAP Prov:ALEX GONZALEZ-C 01/28/16 Tramadol HCl (Tramadol HCl) 50 Mg Tablet, 50 MG PO Q4 Y for PAIN, #12 TAB Prov:TYSON STERLINGC 12/31/15 Tramadol HCl (Tramadol HCl) 50 Mg Tablet, 50 MG PO Q4 Y for PAIN, #10 TAB Prov:ALEX GONZALEZ-C 12/03/15 Ibuprofen* (Motrin*) 800 Mg Tab, 800 MG PO Q6, #14 TAB Prov:ALEX GONZALEZ-C 12/03/15 Ibuprofen* (Motrin*) 400 Mg Tab, 400 MG PO Q6, #15 TAB Prov:NEY SLADE NP 10/29/15 Acetaminophen-Codeine* (Acetaminophen-Cod #3*) 300-30 Mg Tab, 1 TAB PO Q4H Y for PAIN, #10 TAB Prov:NEY SLADE NP 10/29/15 Tramadol HCl (Tramadol HCl) 50 Mg Tablet, 50 MG PO Q4 Y for PAIN, #20 TAB Prov:GUILLERMINA BOONE PA-C 10/26/15 Meloxicam* (Meloxicam*) 7.5 Mg Tablet, 7.5 MG PO DAILY for PAIN, #12 TAB Prov:TARSHA GARCIA MD 10/06/15 Hydrocodone Bit-Acetaminophen* ([place]*) 5-325 Mg Tab, 1 TAB PO Q6 Y for PAIN, # 10 TAB Prov:ROBIN WALLIS NP 09/20/15 Ibuprofen* (Motrin*) 600 Mg Tab, 600 MG PO Q6, #15 TAB Prov:ROBIN WALLIS NP 09/20/15 Hydrocodone Bit-Acetaminophen* ([place]*) 5-325 Mg Tab, 1 TAB PO Q6 Y for PAIN, # 15 TAB Prov:GUILLERMINA BOONE PA-C 05/27/15 Hydrocodone Bit-Acetaminophen* ([place]*) 5-325 Mg Tab, 1 TAB PO Q4H Y for PAIN, # 14 TAB Prov:TYSON STERLING PA-C 04/15/15 Reported Medications Ibuprofen (Motrin) 600 Mg Tablet, 600 MG PO PRN 03/24/13 Allergies Allergies: Coded Allergies: Penicillins (Verified Allergy, Unknown, 08/31/16) PMhx/Soc History of Surgery: Yes (tonsil, appy, gallbladder) Anesthesia Reaction: Yes (nausea) Hx Neurological Disorder: No Hx Respiratory Disorders: No Hx Cardiac Disorders: No Hx Psychiatric Problems: No Hx Miscellaneous Medical Probl: No Hx Alcohol Use: No Hx Substance Use: No Hx Tobacco Use: No Smoking Status: Never smoker Physical Exam Vitals Vital Signs Date Time Temp Pulse Resp B/P Pulse Ox O2 Delivery O2 Flow Rate FiO2 11/04/16 08:46 98.6 112 20 158/70 100 Physical Exam Const: No acute distress Head: Atraumatic Eyes: Normal Conjunctiva ENT: Ears TMs normal. Nose no drainage. Throat no erythema no exudate. Neck: Full range of motion..~ No meningismus. Resp: Clear to auscultation bilaterally no absent breath sounds. No wheezing. Cardio: Regular rate and rhythm, no murmurs Skin: No petechiae or rashes Neur: Awake and alert Psych: Normal Mood and Affect Procedures/MDM This 41-year-old female who presents the emergency department today complaining of cough for the past 5 days. Patient is afebrile here in the emergency department. Her oxygen saturations 100%. She is slightly tachycardic physical exam is otherwise benign.. I do not feel the patient requires further laboratory workup or imaging at this time. Patient has tried [id number] medications with no improvement. Patient did indicate her cough is worse at night patient symptoms at this time is consistent with cough versus viral URI versus allergic rhinitis versus bronchitis. Low suspicion for pneumonia, PE, pleural effusion, abscess, pneumothorax per She will be given a prescription for azithromycin to treat possible bronchitis. She will also be given a prescription for Flonase, Zyrtec and promethazine. Patient was requesting pain medication for her headache. I did offer to give her medication here in the emergency department however she indicates she was driving. Patient is well-known to the emergency department for multiple pain complaints and I do not feel that she would benefit from narcotics at this time. Patient was given a prescription for Naprosyn for home. Prior to discharge patient was stating that she could get Naprosyn [id number] and did not want a prescription for that and she wanted a prescription for something stronger. There 6.2 the patient that she would not be given any stronger pain medication and would not be giving any narcotics. She was instructed to follow-up with her pain management doctor. At this time the patient is stable for discharge and outpatient management. Patient should follow up with their PCP in the next 1-2 days. They may return to the emergency department sooner for any persistent or worsening of symptoms. Patient understood and agreed with the plan. Departure Diagnosis: Primary Impression: Cough Condition: Fair Patient Instructions: Cough, Chronic, Uncertain Cause, (Adult) Referrals: LAYA GREENE (PCP) Additional Instructions: Call your primary care doctor TOMORROW for an appointment during the next 1-2 days.See the doctor sooner or return here if your condition worsens before your appointment time. Take antibiotics as prescribed Take all other medications as prescribed Take Naprosyn for headache ALEX GONZALEZ PA-C Nov 04, 2016 09:42
== END 2016-11-04 10:12 | disposition home or self-care (01) ==
LOC: FTE 08:45
DX: R05 Cough (principal)
CPT/HCPCS: 99284

== ENCOUNTER 2016-12-21 08:45 | Emergency (ER) | payer SELFPAY ==
[~2016-12-21] VITALS: Ht 154.9 cm; Wt 82.0 kg
[~2016-12-21 08:45] MED LIST changes: +AZIT250T94 PO; +CETI10CA PO; +D-ME473S18 PO; +FLUT9.9S NASAL
[2016-12-21 08:46] VITALS: Ht 154.9 cm; Wt 82.0 kg
--- NOTE | 2016-12-21 10:47 | RADRPT ---
PROCEDURE: XR Lumbar Spine. CLINICAL INDICATION: Low back pain. TECHNIQUE: Three views of the lumbar spine are available for review COMPARISON: None available FINDINGS: No acute fracture or dislocation is seen. The alignment is normal. The normal lumbar lordosis is preserved. No radiopaque foreign body is identified. The vertebral body heights are maintained. The intervertebral disk spaces are maintained. The posterior elements are unremarkable. On the frontal view, there is normal alignment. Sub centimeter soft tissue calcifications are noted in the right lower quadrant. Surgical jl right upper quadrant suggest previous cholecystectomy. IMPRESSION: 1. Unremarkable lumbar spine x-ray series. RPTAT: QQ .Heladio Varner MD, MD Date Time Electronically viewed and signed by .Heladio Varner MD, on 12/21/2016 10:47 .M/
[2016-12-21] MEDS ORDERED: NAPR-260 PO (10:51)
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
== END 2016-12-21 11:01 | disposition home or self-care (01) ==
LOC: FTE 08:45
DX: S39.92XA Unspecified injury of lower back, initial encounter (principal); W50.0XXA Accidental hit or strike by another person, initial encounter; Y92.34 Swimming pool (public) as the place of occurrence of the external cause
CPT/HCPCS: 72100

== ENCOUNTER 2017-02-22 13:15 | Emergency (ER) | payer SELFPAY ==
[~2017-02-22] VITALS: Ht 154.9 cm; Wt 81.0 kg
[2017-02-22 13:19] VITALS: Ht 154.9 cm; Wt 81.0 kg
[2017-02-22] MEDS ORDERED: KETOROLAC 30 MG INJ IM STA (14:37)
[2017-02-22] MEDS ORDERED: IBUP-1542 PO (14:42)
--- NOTE | 2017-02-22 14:48 | ERD ---
ER Documentation Chief Complaint Date/Time DATE: 02/22/17 TIME: 14:43 Chief Complaint 02/06 lower back pain x last night HPI Patient is a 41-year-old female with past medical history of chronic back pain presents to the emergency department for concerns of lower back pain which started yesterday. Patient states she has been moving many heavy objects throughout her house for the last few days. Patient states that she does have a history of 2 bulging disc. Patient denies any falls or blunt trauma. Patient denies any saddle anesthesia, urinary incontinence, stool incontinence, fever, chills, nausea, vomiting, dysuria, flank pain or loss consciousness. Patient states she has been taking ibuprofen with no relief of symptoms. Patient is requesting tramadol at this time. ROS All systems reviewed and are negative except as per history of present illness. Medications Home Meds Active Scripts Ibuprofen* (Motrin*) 600 Mg Tab, 600 MG PO Q6, #30 TAB Prov:ANGIE MORALEZ PA-C 02/22/17 Naproxen* (Naprosyn*) 500 Mg Tablet, 500 MG PO BID Y for PAIN AND/OR INFLAMMATION, #30 TAB Prov:TYSON STERLING PA-C 12/21/16 Naproxen* (Naprosyn*) 500 Mg Tablet, 500 MG PO BID Y for PAIN AND/OR INFLAMMATION, #30 TAB Prov:ALEX GONZALEZ PA-C 11/04/16 Azithromycin* (Zithromax*) 250 Mg Tablet, 250 MG PO .ZPACK DIRECTED, #6 TAB TAKE 500 MG (2 TABS) THE FIRST DAY THEN 250 MG (1 TAB) DAYS 2-5 Prov:ALEX GONZALEZ PA-C 11/04/16 Dextromethorphan Hb-Promethazine Hcl (Promethazine DM Syrup) 473 Ml Syrup, 5 ML PO Q6H Y for COUGH, #4 OZ Prov:ALEX GONZALEZ PA-C 11/04/16 Cetirizine Hcl* (Zyrtec*) 10 Mg Capsule, 10 MG PO DAILY, #14 TAB.CHEW Prov:ALEX GONZALEZ PA-C 11/04/16 Fluticasone Propionate (Flonase Allergy Relief) 9.9 Ml [place].susp, 2 SPRAY NASAL DAILY, #1 BOTTLE TO EACH NOSTRIL Prov:PROUSE,ALEX M. PA-C 11/04/16 Ondansetron Hcl* (Zofran*) 4 Mg Tablet, 4 MG PO Q6H for NAUSEA AND/OR VOMITING, #30 TAB Prov:GLADIS KAT PA-C 10/01/16 Tramadol HCl (Tramadol HCl) 50 Mg Tablet, 50 MG PO Q4 Y for PAIN, #7 TAB Prov:GLADIS KAT PA-C 10/01/16 Ibuprofen* (Motrin*) 400 Mg Tab, 400 MG PO Q6, #30 TAB Prov:GLADIS KAT PA-C 10/01/16 Ondansetron (Ondansetron Odt) 8 Mg Tab.rapdis, 8 MG PO Q6H Y for NAUSEA AND/OR VOMITING, #20 TAB Prov:ANGIE MORALEZ PA-C 09/03/16 Tramadol HCl (Tramadol HCl) 50 Mg Tablet, 50 MG PO Q6, #10 TAB Prov:ANGIE MORALEZ PA-C 09/03/16 Naproxen* (Naprosyn*) 500 Mg Tablet, 500 MG PO BID Y for PAIN AND/OR INFLAMMATION, #30 TAB Prov:GUILLERMINA BOONE PA-C 08/31/16 Hydrocodone/Acetaminophen ([place] 5-325 Tablet) 1 Each Tablet, 1 TAB PO Q6H Y for PAIN, #12 TAB Prov:GUILLERMINA BOONE PA-C 08/31/16 Tramadol HCl (Tramadol HCl) 50 Mg Tablet, 50 MG PO Q6, #20 TAB Prov:BRITTANI THAYER DO 08/08/16 Guaifenesin-Codeine Phosphate* (Guaifenesin* AC Cough Syrup) 473 Ml Liquid, 5 ML PO Q4H Y for COUGH, #4 OZ Prov:EMMANUEL GRULLON PA-C 07/20/16 Hydrocodone/Acetaminophen ([place] 10-325 Tablet) 1 Each Tablet, 1 TAB PO Q6H Y for PAIN, #15 TAB Prov:EMMANUEL GRULLON PA-C 07/20/16 Naproxen* (Naprosyn*) 500 Mg Tablet, 500 MG PO BID Y for PAIN AND/OR INFLAMMATION, #30 TAB Prov:ALEX GONZALEZ PA-C 05/25/16 Ibuprofen* (Motrin*) 600 Mg Tab, 600 MG PO Q6, #30 TAB Prov:NANCI CAMACHO PA-C 05/12/16 Tramadol HCl (Tramadol HCl) 50 Mg Tablet, 50 MG PO Q4 Y for PAIN, #20 TAB Prov:GUILLERMINA BOONE PA-C 04/04/16 Naproxen* (Naprosyn*) 500 Mg Tablet, 500 MG PO BID Y for PAIN AND/OR INFLAMMATION, #30 TAB Prov:TYSON STERLING PA-C 04/01/16 Hydrocodone/Acetaminophen ([place] 5-325 Tablet) 1 Each Tablet, 1 TAB PO Q6H Y for PAIN, #14 TAB Prov:OTONIEL ASTUDILLO MD 03/29/16 Orphenadrine Citrate (Norflex) 100 Mg Tablet.sa, 100 MG PO BID for 7 Days, TAB.SA Prov:RADHA ROMO 03/10/16 Hydrocodone Bit-Acetaminophen* ([place]*) 5-325 Mg Tab, 1 TAB PO Q6 Y for PAIN, # 10 TAB Prov:RADHA ROMO 03/10/16 Hydrocodone Bit-Acetaminophen* ([place]*) 5-325 Mg Tab, 1 TAB PO Q6 Y for PAIN, # 20 TAB Prov:RADHA ROMO 02/24/16 Ibuprofen* (Motrin*) 600 Mg Tab, 600 MG PO Q6, #20 TAB Prov:ALEX GONZALEZ PA-C 02/04/16 Tramadol HCl (Tramadol HCl) 50 Mg Tablet, 50 MG PO Q6 Y for PAIN, #8 TAB Prov:ALEX GONZALEZC 02/04/16 Cyclobenzaprine Hcl* (Cyclobenzaprine Hcl*) 10 Mg Tablet, 10 MG PO BID, #10 TAB Prov:ALEX GONZALEZ PA-C 02/04/16 Tramadol HCl (Tramadol HCl) 50 Mg Tablet, 50 MG PO Q6 Y for PAIN, #10 TAB Prov:ALEX GONZALEZ PA-C 01/28/16 Cephalexin* (Keflex*) 500 Mg Capsule, 500 MG PO QID for 7 Days, CAP Prov:ALEX GONZALEZ PA-C 01/28/16 Tramadol HCl (Tramadol HCl) 50 Mg Tablet, 50 MG PO Q4 Y for PAIN, #12 TAB Prov:TYSON STERLING PA-C 12/31/15 Tramadol HCl (Tramadol HCl) 50 Mg Tablet, 50 MG PO Q4 Y for PAIN, #10 TAB Prov:ALEX GONZALEZ PA-C 12/03/15 Ibuprofen* (Motrin*) 800 Mg Tab, 800 MG PO Q6, #14 TAB Prov:ALEX GONZALEZ PA-C 12/03/15 Ibuprofen* (Motrin*) 400 Mg Tab, 400 MG PO Q6, #15 TAB Prov:NEY SLADE NP 10/29/15 Acetaminophen-Codeine* (Acetaminophen-Cod #3*) 300-30 Mg Tab, 1 TAB PO Q4H Y for PAIN, #10 TAB Prov:NEY SLADE NP 10/29/15 Tramadol HCl (Tramadol HCl) 50 Mg Tablet, 50 MG PO Q4 Y for PAIN, #20 TAB Prov:GUILLERMINA BOONE PA-C 10/26/15 Meloxicam* (Meloxicam*) 7.5 Mg Tablet, 7.5 MG PO DAILY for PAIN, #12 TAB Prov:TARSHA GARCIA MD 10/06/15 Hydrocodone Bit-Acetaminophen* ([place]*) 5-325 Mg Tab, 1 TAB PO Q6 Y for PAIN, # 10 TAB Prov:ROBIN WALLIS NP 09/20/15 Ibuprofen* (Motrin*) 600 Mg Tab, 600 MG PO Q6, #15 TAB Prov:ROBIN WALLIS NP 09/20/15 Hydrocodone Bit-Acetaminophen* ([place]*) 5-325 Mg Tab, 1 TAB PO Q6 Y for PAIN, # 15 TAB Prov:GUILLERMINA BOONE PA-C 05/27/15 Hydrocodone Bit-Acetaminophen* ([place]*) 5-325 Mg Tab, 1 TAB PO Q4H Y for PAIN, # 14 TAB Prov:TYSON STERLING PA-C 04/15/15 Reported Medications Ibuprofen (Motrin) 600 Mg Tablet, 600 MG PO PRN 03/24/13 Allergies Allergies: Coded Allergies: Penicillins (Verified Allergy, Unknown, 02/22/17) PMhx/Soc History of Surgery: Yes (tonsil, appy, gallbladder) Anesthesia Reaction: Yes (nausea) Hx Neurological Disorder: No Hx Respiratory Disorders: No Hx Cardiac Disorders: No Hx Psychiatric Problems: No Hx Miscellaneous Medical Probl: No Hx Alcohol Use: No Hx Substance Use: No Hx Tobacco Use: No Physical Exam Vitals Vital Signs Date Time Temp Pulse Resp B/P Pulse Ox O2 Delivery O2 Flow Rate FiO2 02/22/17 13:19 98.0 86 16 121/57 100 Physical Exam General: Well-developed, well-nourished female. Appears in no acute distress. Speaking in full sentences. Head: Normocephalic, atraumatic. Eyes: Pupils are equally reactive bilaterally. EOMs grossly intact. No conjunctival erythema. ENT: Moist mucous membranes. Neck: Supple. No lymphadenopathy or thyromegaly. No meningeal signs. Lungs: Clear to auscultation bilaterally. No rhonchi, wheezing, rales or coarse breath sounds. Heart: Regular rate and rhythm. No murmurs, rubs or gallops. Back: No midline spinal process tenderness noted. Tender to palpation in the bilateral paraspinals lumbar regions. No CVA tenderness noted bilaterally. Extremities: No pedal edema, unilateral leg swelling. 5/5 strength in all extremities. Neurologic: Alert and oriented x3. Moving all four extremities. Normal speech. Steady gait. Skin: Normal color. Warm and dry. No rashes or lesions. Results 24 hrs Current Medications Medications (Trade) Dose Ordered Sig/Nia Route PRN Reason Start Time Stop Time Status Last Admin Dose Admin Ketorolac Tromethamine (Toradol) 30 mg ONCE STAT IM 02/22/17 14:37 02/22/17 14:39 DC Procedures/MDM MEDICAL DECISION MAKING: Patient s a 41-year-old female with a history of chronic back pain who presents emergency department with acute back pain 2 days. Patient states she was lifting heavy objects at her house. Patient denies any falls or trauma. Vital signs were reviewed. Patient was afebrile. Patient denied any saddle anesthesia , urinary incontinence, bowel incontinence, night pain or recent trauma. Per JOANNE report, in the last 12 months patient has had a total of 42 emergency room visits. Report states that patient was seen earlier today at [facility] and diagnosed with a cough and acute respiratory tract infection. Report also states that "Patient has received 390 tablets of tramadol 50 mg in the past 2 months from a variety of emergency, pain management and general providers in [facility] with prescriptions for [place] and Valium as well." I advised to the patient that at this time I will not be able to provide her with any prescriptions for tramadol or other narcotic medications. Patient will be discharged with prescription for ibuprofen 600 mg. 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 Of note, nursing staff notified me that patient eloped prior to discharge paperwork. At this time I do believe the patient does have some drug-seeking behavior. It appears the patient eloped because I advised her that I would not provide her with prescription of tramadol given her medication history. Given these findings, the patient's presentation is most consistent with chronic back pain and drug-seeking behavior. I have a much lower clinical concern for cauda equine syndrome, spinal fractures, epidural abscess, spinal metastases, osteomyelitis, aortic dissection, ruptured or leaking AA, DJD, sciatica, lumbar strain, muscle spasm, pyelonephritis or nephrolithiasis. PRESCRIPTIONS: Ibuprofen DISCHARGE: At this time, patient is stable for discharge and outpatient management. I have instructed the patient to follow-up with his/her primary care physician in 1-2 days. I have discussed with the patient the possibility of needing to see an chemical operations specialist for further workup and imaging if the pain persists. I have instructed the patient to promptly return to the ER for any new or worsening symptoms including increased pain, swelling, warmth, urinary incontinence, stool incontinence, weakness or numbness. The patient and/or family expressed understanding of and agreement with this plan. All questions were answered. Home care instructions were provided. Departure Diagnosis: Primary Impression: Lower back pain Chronicity: chronic Back pain laterality: unspecified Sciatica presence: unspecified whether sciatica present Qualified Code: M54.5 - Chronic low back pain, unspecified back pain laterality, with sciatica presence unspecified Condition: Stable Patient Instructions: Back Pain (Acute Or Chronic) Additional Instructions: Call your primary care doctor TOMORROW for an appointment during the next 1-2 days.See the doctor sooner or return here if your condition worsens before your appointment time. Obtain referral for orthopedic specialty. Follow-up with your primary care physician. ANGIE MORALEZ PA-C Feb 22, 2017 14:48
== END 2017-02-22 15:49 | disposition home or self-care (01) ==
LOC: FTE 13:15
DX: M54.5 Low back pain (principal)
CPT/HCPCS: 99283; J1885

== ENCOUNTER 2017-08-09 09:49 | Emergency (ER) | END 2017-08-09 10:48 | disposition left against medical advice (07) ==

== ENCOUNTER 2018-10-17 08:05 | Emergency (ER) | payer BC ==
[~2018-10-17] VITALS: Ht 160 cm; Wt 85.2 kg
[~2018-10-17 08:05] MED LIST changes: +AZIT250T PO; -AZIT250T94 PO; -CYCL-319 PO; +CYCL10TA7 PO; +HYDR-3980 PO; +HYDR-4011 PO; -HYDR-902 PO; -HYDR-906 PO; +IBUP-1561 PO; -IBUP400T22 PO; -IBUP800T25 PO; +IBUP800T48 PO; -MELO-109 PO; +MELO7.5T38 PO; -NAPR-260 PO; +NAPR-985 PO
[2018-10-17 08:09] VITALS: BP 132/88; PULSE 72; RESP 19; Ht 160 cm; Wt 85.2 kg
[2018-10-17] MEDS ORDERED: HYDR-4011 PO (09:05)
[2018-10-17] MEDS ORDERED: IBUP800T48 PO (09:05)
[2018-10-17] MEDS ORDERED: CLIN300C10 PO (09:09)
--- NOTE | 2018-10-17 09:25 | ERD ---
ER Documentation Chief Complaint Chief Complaint jaw pain x 5 days hurt in dental office HPI 43-year-old female presenting for check of left jaw. Patient was seen this past weekend approximately 3 days ago in [place] for a dental root canal. Patient states that she had her jaw open for about 2-3 hours during the procedure and has had significant pain of the jaw ever since. She has a history of TMJ. She is taking medications. Medical history denies. Surgical history appendectomy cholecystectomy tubal ligation. Social history denies. Allergic to penicillin. ROS All systems reviewed and are negative except as per history of present illness. Medications Home Meds Active Scripts Clindamycin Hcl* (Clindamycin Hcl*) 300 Mg Capsule, 300 MG PO TID for 10 Days, CAP Prov:GUILLERMINA BOONE PA-C 10/17/18 Ibuprofen* (Motrin*) 800 Mg Tab, 800 MG PO Q6, #30 TAB Prov:GUILLERMINA BOONE PA-C 10/17/18 Hydrocodone/Acetaminophen ([place] 5-325 Tablet) 1 Each Tablet, 1 TAB PO Q6H PRN for PAIN, #7 TAB Prov:GUILLERMINA BOONE PA-C 10/17/18 Ibuprofen* (Motrin*) 600 Mg Tab, 600 MG PO Q6, #30 TAB Prov:ANGIE MORALEZ PA-C 02/22/17 Naproxen* (Naprosyn*) 500 Mg Tablet, 500 MG PO BID PRN for PAIN AND/OR INFLAMMATION, #30 TAB Prov:TYSON STERLING PA-C 12/21/16 Naproxen* (Naprosyn*) 500 Mg Tablet, 500 MG PO BID PRN for PAIN AND/OR INFLAMMATION, #30 TAB Prov:ALEX GONZALEZ PA-C 11/04/16 Azithromycin* (Zithromax*) 250 Mg Tablet, 250 MG PO .HARSHALCK DIRECTED, #6 TAB TAKE 500 MG (2 TABS) THE FIRST DAY THEN 250 MG (1 TAB) DAYS 2-5 Prov:ALEX GONZALEZ PA-C 11/04/16 Dextromethorphan Hb-Promethazine Hcl (Promethazine DM Syrup) 473 Ml Syrup, 5 ML PO Q6H PRN for COUGH, #4 OZ Prov:ALEX GONZALEZ PA-C 11/04/16 Cetirizine Hcl* (Zyrtec*) 10 Mg Capsule, 10 MG PO DAILY, #14 TAB.CHEW Prov:ALEX GONZALEZ PA-C 11/04/16 Fluticasone Propionate (Flonase Allergy Relief) 9.9 Ml [place].susp, 2 SPRAY NASAL DAILY, #1 BOTTLE TO EACH NOSTRIL Prov:ALEX GONZALEZ PA-C 11/04/16 Ondansetron Hcl* (Zofran*) 4 Mg Tablet, 4 MG PO Q6H for NAUSEA AND/OR VOMITING, #30 TAB Prov:GLADIS KAT PA-C 10/01/16 Tramadol HCl (Tramadol HCl) 50 Mg Tablet, 50 MG PO Q4 PRN for PAIN, #7 TAB Prov:GLADIS KAT PA-C 10/01/16 Ibuprofen* (Motrin*) 400 Mg Tab, 400 MG PO Q6, #30 TAB Prov:GLADIS KAT PA-C 10/01/16 Ondansetron (Ondansetron Odt) 8 Mg Tab.rapdis, 8 MG PO Q6H PRN for NAUSEA AND/OR VOMITING, #20 TAB Prov:ANGIE MORALEZ PA-C 09/03/16 Tramadol HCl (Tramadol HCl) 50 Mg Tablet, 50 MG PO Q6, #10 TAB Prov:ANGIE MORALEZ PA-C 09/03/16 Naproxen* (Naprosyn*) 500 Mg Tablet, 500 MG PO BID PRN for PAIN AND/OR INFLAMMATION, #30 TAB Prov:GUILLERMINA BOONE PA-C 08/31/16 Hydrocodone/Acetaminophen ([place] 5-325 Tablet) 1 Each Tablet, 1 TAB PO Q6H PRN for PAIN, #12 TAB Prov:GUILLERMINA BOONE PA-C 08/31/16 Tramadol HCl (Tramadol HCl) 50 Mg Tablet, 50 MG PO Q6, #20 TAB Prov:BRITTANI THAYER DO 08/08/16 Guaifenesin-Codeine Phosphate* (Guaifenesin* AC Cough Syrup) 473 Ml Liquid, 5 ML PO Q4H PRN for COUGH, #4 OZ Prov:EMMANUEL GRULLON PA-C 07/20/16 Hydrocodone/Acetaminophen ([place] 10-325 Tablet) 1 Each Tablet, 1 TAB PO Q6H PRN for PAIN, #15 TAB Prov:EMMANUEL GRULLON PA-C 07/20/16 Naproxen* (Naprosyn*) 500 Mg Tablet, 500 MG PO BID PRN for PAIN AND/OR INFLAMMATION, #30 TAB Prov:ALEX GONZALEZ PA-C 05/25/16 Ibuprofen* (Motrin*) 600 Mg Tab, 600 MG PO Q6, #30 TAB Prov:NANCI CAMACHO PA-C 05/12/16 Tramadol HCl (Tramadol HCl) 50 Mg Tablet, 50 MG PO Q4 PRN for PAIN, #20 TAB Prov:GUILLERMINA BOONE PA-C 04/04/16 Naproxen* (Naprosyn*) 500 Mg Tablet, 500 MG PO BID PRN for PAIN AND/OR INFLAMM ATION, #30 TAB Prov:TYSON STERLING PA-C 04/01/16 Hydrocodone/Acetaminophen ([place] 5-325 Tablet) 1 Each Tablet, 1 TAB PO Q6H PRN for PAIN, #14 TAB Prov:OTONIEL ASTUDILLO MD 03/29/16 Orphenadrine Citrate (Norflex) 100 Mg Tablet.sa, 100 MG PO BID for 7 Days, TAB.SA Prov:RADHA ROMO 03/10/16 Hydrocodone Bit-Acetaminophen* ([place]*) 5-325 Mg Tab, 1 TAB PO Q6 PRN for PAIN, #10 TAB Prov:RADHA ROMO 03/10/16 Hydrocodone Bit-Acetaminophen* ([place]*) 5-325 Mg Tab, 1 TAB PO Q6 PRN for PAIN, #20 TAB Prov:RADHA ROMO 02/24/16 Ibuprofen* (Motrin*) 600 Mg Tab, 600 MG PO Q6, #20 TAB Prov:ALEX GONZALEZ PA-C 02/04/16 Tramadol HCl (Tramadol HCl) 50 Mg Tablet, 50 MG PO Q6 PRN for PAIN, #8 TAB Prov:ALEX GONZALEZ PA-C 02/04/16 Cyclobenzaprine Hcl* (Cyclobenzaprine Hcl*) 10 Mg Tablet, 10 MG PO BID, #10 TAB Prov:ALEX GONZALEZ-C 02/04/16 Tramadol HCl (Tramadol HCl) 50 Mg Tablet, 50 MG PO Q6 PRN for PAIN, #10 TAB Prov:ALEX GONZALEZC 01/28/16 Cephalexin* (Keflex*) 500 Mg Capsule, 500 MG PO QID for 7 Days, CAP Prov:ALEX GONZALEZC 01/28/16 Tramadol HCl (Tramadol HCl) 50 Mg Tablet, 50 MG PO Q4 PRN for PAIN, #12 TAB Prov:TYSON STERLINGC 12/31/15 Tramadol HCl (Tramadol HCl) 50 Mg Tablet, 50 MG PO Q4 PRN for PAIN, #10 TAB Prov:ALEX GONZALEZC 12/03/15 Ibuprofen* (Motrin*) 800 Mg Tab, 800 MG PO Q6, #14 TAB Prov:ALEX GONZALEZC 12/03/15 Ibuprofen* (Motrin*) 400 Mg Tab, 400 MG PO Q6, #15 TAB Prov:NEY SLADE NP 10/29/15 Acetaminophen-Codeine* (Acetaminophen-Cod #3*) 300-30 Mg Tab, 1 TAB PO Q4H PRN for PAIN, #10 TAB Prov:NEY SLADE NP 10/29/15 Tramadol HCl (Tramadol HCl) 50 Mg Tablet, 50 MG PO Q4 PRN for PAIN, #20 TAB Prov:GUILLERMINA BOONEC 10/26/15 Meloxicam* (Meloxicam*) 7.5 Mg Tablet, 7.5 MG PO DAILY for PAIN, #12 TAB Prov:TARSHA GARCIA MD 10/06/15 Hydrocodone Bit-Acetaminophen* ([place]*) 5-325 Mg Tab, 1 TAB PO Q6 PRN for PAIN, #10 TAB Prov:ROBIN WALLIS NP 09/20/15 Ibuprofen* (Motrin*) 600 Mg Tab, 600 MG PO Q6, #15 TAB Prov:ROBIN WALLIS NP 09/20/15 Hydrocodone Bit-Acetaminophen* ([place]*) 5-325 Mg Tab, 1 TAB PO Q6 PRN for PAIN, #15 TAB Prov:GUILLERMINA BOONE PA-C 05/27/15 Hydrocodone Bit-Acetaminophen* ([place]*) 5-325 Mg Tab, 1 TAB PO Q4H PRN for PAIN, #14 TAB Prov:TYSON STERLING PA-C 04/15/15 Reported Medications Ibuprofen (Motrin) 600 Mg Tablet, 600 MG PO PRN 03/24/13 Allergies Allergies: Coded Allergies: Penicillins (Verified Allergy, Unknown, 10/17/18) PMhx/Soc History of Surgery: Yes (tonsil, appy, gallbladder) Anesthesia Reaction: Yes (nausea) Hx Neurological Disorder: No Hx Respiratory Disorders: No Hx Cardiac Disorders: No Hx Psychiatric Problems: No Hx Miscellaneous Medical Probl: No Hx Alcohol Use: No Hx Substance Use: No Hx Tobacco Use: No Smoking Status: Never smoker FmHx Family History: No diabetes, No coronary disease, No other Physical Exam Vitals Vital Signs Date Temp Pulse Resp B/P (MAP) Pulse Ox O2 O2 Flow FiO2 Time Delivery Rate 10/17/18 97.7 72 19 132/88 100 08:09 (103) Physical Exam GENERAL: The patient is well-appearing, well-nourished, in no acute distress HEENT: Atraumatic. Conjunctivae are pink. Pupils equal, round, and reactive to light. There is no scleral icterus. Tympanic membranes clear bilaterally. Oropharynx clear. Tender to palpation over the left jaw space with no clicking when opening. NECK: C-spine is soft and supple. There is no meningismus. There is no cervical lymphadenopathy. CHEST: Clear to auscultation bilaterally. There are no rales, wheezes or rhonchi. HEART: Regular rate and rhythm. No murmurs, clicks, rubs or gallops. Procedures/MDM MDM: 43-year-old female presenting with jaw pain. I will treat with antibiotics in case there is a underlying infection given [place] and may not have good follow-up. Patient also has a discharge with antibiotics. Patient is told symptoms change or worsen to return immediately to the ER. I have low suspicion for deep tracking infection. All questions answered at discharge Departure Diagnosis: Primary Impression: TMJ syndrome Condition: Stable Patient Instructions: Tmj Syndrome Referrals: COMMUNITY CLINICS YOU HAVE RECEIVED A MEDICAL SCREENING EXAM AND THE RESULTS INDICATE THAT YOU DO NOT HAVE A CONDITION THAT REQUIRES URGENT TREATMENT IN THE EMERGENCY DEPARTMENT. FURTHER EVALUATION AND TREATMENT OF YOUR CONDITION CAN WAIT UNTIL YOU ARE SEEN IN YOUR DOCTORS OFFICE WITHIN THE NEXT 1-2 DAYS. IT IS YOUR RESPONSIBILITY TO MAKE AN APPOINTMENT FOR FOLOW-UP CARE. IF YOU HAVE A PRIMARY DOCTOR --you should call your primary doctor and schedule an appointment IF YOU DO NOT HAVE A PRIMARY DOCTOR YOU CAN CALL OUR PHYSICIAN REFERRAL HOTLINE AT IF YOU CAN NOT AFFORD TO SEE A PHYSICIAN YOU CAN CHOSE FROM THE FOLLOWING [facility] [address] [facility] [address] [facility] [facility] [address] [facility] [address] [facility] [facility] [address] [facility] [facility]. [address] Additional Instructions: FOLLOW UP WITH YOUR PRIMARY CARE PHYSICIAN TOMORROW.Return to this facility if you are not improving as expected. GUILLERMINA BOONE PA-C Oct 17, 2018 09:25
== END 2018-10-17 09:47 | disposition home or self-care (01) ==
LOC: FTE 08:05
DX: M26.622 Arthralgia of left temporomandibular joint (principal)
CPT/HCPCS: 99283

== ENCOUNTER 2019-01-28 16:01 | Emergency (ER) | payer BC ==
[~2019-01-28] VITALS: Ht 157.5 cm; Wt 80.6 kg
[~2019-01-28 16:01] MED LIST changes: +CLIN300C10 PO
[2019-01-28 16:07] VITALS: Ht 157.5 cm; Wt 80.6 kg
[2019-01-28] MEDS ORDERED: KETOROLAC 30 MG INJ IM STA (17:19)
[2019-01-28] MEDS ORDERED: HYDROCODONE/APAP (5/325) TAB PO ONE (17:30)
[2019-01-28] MEDS ORDERED: IBUP-1542 PO (18:47)
[2019-01-28] MEDS ORDERED: HYDR-4011 PO (18:47)
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
[2019-01-28 19:20] VITALS: BP 128/80; PULSE 66; RESP 12
== END 2019-01-28 19:21 | disposition home or self-care (01) ==
LOC: FTE 16:01
DX: S49.91XA Unspecified injury of right shoulder and upper arm, initial encounter (principal); R07.9 Chest pain, unspecified; V87.7XXA Person injured in collision between other specified motor vehicles (traffic), initial encounter
CPT/HCPCS: 71045; 72040; 81025; 99284; Z7610